=== PATIENT | female | born 1960 | race Two or more races ===

== ENCOUNTER → 2017-01-20 | Outpatient (CLI) | payer OTHER ==
[~2017-01-20] MED LIST: ASPIRIN325 MG PO; COREG25 MG PO; FLEXERIL10 MG PO; GLUCOPHAGE1000 MG PO; LOVASTATIN20 MG PO; NAPROSYN500 MG PO; PRINIVIL10 MG PO
== END | disposition short-term general hospital (02) ==
LOC: CLORTH 08:33
DX: M25.572 Pain in left ankle and joints of left foot (principal)